=== PATIENT | female | born 1975 | race Caucasian/White ===

== ENCOUNTER 2023-11-25 06:29 | Day surgery (SDC) | payer BC ==
[2023-11-25] VITALS (9 sets, daily range): BP systolic 104–125; BP diastolic 75–85
[~2023-11-25] VITALS: Ht 157.5 cm; Wt 112.6 kg
[~2023-11-25 06:29] MED LIST: Lactated Ringer's 1,000 ML IV SCH
[2023-11-25] MEDS ORDERED: Armour Thyroid15 MG PO (06:42)
[2023-11-25] MEDS ORDERED: PROG100 PO (06:42)
[2023-11-25] MEDS ORDERED: THYROID60 MG (06:43)
--- NOTE | 2023-11-25 06:59 | NUR ---
Ambulatory in Day Surgery History, Chart, Medications and Allergies reviewed before start of procedure. Lungs clear T/O to Auscultation. Pre-Op teaching done. Pt verbalizes understanding. Patient States Post-Procedure ride home has been arranged.
[2023-11-25] MEDS ORDERED: Dexamethasone Sod Phos 10 MG/ML 1ML VIAL ONE (07:44)
[2023-11-25] MEDS ORDERED: propofoL 20 ML IV ONE (07:44)
[2023-11-25] MEDS ORDERED: Ondansetron HCl 2 MG / ML 2ML Vial ONE (07:44)
[2023-11-25] MEDS ORDERED: SuccINYLCHOLINE Chloride 100 MG/5 ML 5MLSYR ONE (07:44)
[2023-11-25] MEDS ORDERED: FentaNYL Citrate 50 MCG/ML 2 ML Injection ONE ×3 (07:46→09:13)
[2023-11-25] MEDS ORDERED: Bupivacaine 0.5% HCl 5 MG/ML 30MLVIAL ONE (08:02)
[2023-11-25] MEDS ORDERED: HYDROcodone 5-APAP 325 TAB PO PRN (09:05)
--- NOTE | 2023-11-25 10:45 | NUR ---
1015- Discharge instructions reviewed with patient. Patient verbalizes understanding. Copy given to patient to take home. DRG C/D/I TO BUTTOCK WITH SURGICAL GLUE IN PLACE. Discharged via wheelchair to private car for ride home.
== END 2023-11-25 10:15 | disposition home or self-care (01) ==
LOC: ORD 06:29 → ORSCMMR 06:29 → ORD 07:30
PROVIDERS: Surgery
PROC: 0JB90ZX Excision of Buttock Subcutaneous Tissue and Fascia, Open Approach, Diagnostic (ICD-10-PCS; principal; 2023-11-25 07:30)
DX: R22.2 Localized swelling, mass and lump, trunk (principal); M79.89 Other specified soft tissue disorders; E03.9 Hypothyroidism, unspecified; E66.01 Morbid (severe) obesity due to excess calories; Z68.42 Body mass index [BMI] 45.0-49.9, adult; Z79.899 Other long term (current) drug therapy
CPT/HCPCS: 88304; A9270; J0330; J1100; J2405; J2704; J3010; J7120

== ENCOUNTER 2024-08-21 07:20 | Emergency (ER) | payer BC ==
[~2024-08-21] VITALS: Ht 157.5 cm; Wt 87.5 kg
[~2024-08-21 07:20] MED LIST changes: +Armour Thyroid15 MG PO; -Lactated Ringer's 1,000 ML IV SCH; +PROG100 PO; +THYROID60 MG
[2024-08-21 08:28] VITALS: BP 133/83
[2024-08-21] MEDS ORDERED: Ketorolac Tromethamine 15mg Vial IV ONE (08:30)
[2024-08-21 08:55] LABS: BASOPHILS ABSOLUTE AUTO 0.04 K/mm3 (0.00-0.23); BASOPHILS PERCENT AUTO 0 % (0-2); EOSINOPHILS ABSOLUTE AUTO 0.04 K/mm3 (0.00-0.68); EOSINOPHILS PERCENT AUTO 0 % (0-6); Hematocrit 44.2 % (33.0-51.0); Hemoglobin 15.8 g/dL (11.5-16.0); IMMATURE GRAN ABSOLUTE AUTO 0.05 K/mm3 (0.00-0.10); IMMATURE GRAN PERCENT AUTO 1 % (0-1); LYMPHOCYTES ABSOLUTE AUTO 0.88 K/mm3 (0.84-5.20); LYMPHOCYTES PERCENT AUTO 9 % (21-46); MONOCYTES ABSOLUTE AUTO 0.76 K/mm3 (0.16-1.47); MONOCYTES PERCENT AUTO 8 % (4-13); Mean Corpuscular HGB 33.1 pg (26.0-34.0); Mean Corpuscular HGB Conc 35.7 g/dL (31.5-36.5); Mean Corpuscular Volume 93 fL (80-100); Mean Platelet Volume 11.9 fL (9.1-12.4); NEUTROPHILS ABSOLUTE AUTO 7.69 K/mm3 (1.96-9.15); NEUTROPHILS PERCENT AUTO 81 % (41-73); Platelet Count 176 K/mm3 (150-400); RDW Coefficient Variation 12.5 % (11.7-14.2); RDW Standard Deviation 42.8 fL (35.1-46.3); Red Blood Cell Count 4.77 M/mm3 (3.80-5.20); White Blood Cell Count 9.46 K/mm3 (4.00-11.30)
[2024-08-21 09:16] LABS: Albumin, Blood 3.8 g/dL (3.4-5.0); Albumin/Globulin Ratio 1.1 (0.8-1.8); Bilirubin, Total 1.4 mg/dL (0.1-1.0); Bun/Creatinine Ratio 8.5 (12.0-20.0); Calcium, Blood 9.4 mg/dL (8.5-10.1); Creatinine, Blood 0.94 mg/dL (0.40-1.00); Globulin, Blood 3.4 g/dL (2.2-4.0); Potassium, Blood 4.7 mmol/L (3.5-5.5); Total Protein, Blood 7.2 g/dL (6.4-8.2)
[2024-08-21 09:54] LABS: Source, Urine Clean Catch
[2024-08-21 10:13] LABS: Appearance, Urine Hazy (Clear); Bilirubin, Urine Neg (Neg); Blood, Urine 5+ (Neg); Color, Urine Yellow (P-Yellow); Glucose Qualitative, Urine Neg (Neg); Ketones, Urine 1+ (Neg); Leukocyte Esterase, Urine 3+ (Neg); Nitrite, Urine Neg (Neg); Protein, Urine 2+ (Neg); Specific Gravity, Urine 1.005 (1.003-1.022); Urobilinogen, Urine NORM (Normal); pH, Urine 6.5 (5.0-8.0)
[2024-08-21 11:05] LABS: Bacteria Mod /hpf; Mucus Light (0-Heavy); Squamous Epithelial Cells Few /hpf (Few); White Blood Cells, Urine TNTC /hpf (0-5)
[2024-08-21] MEDS ORDERED: CEFD300 PO (11:13)
[2024-08-21] MEDS ORDERED: Cefdinir 300 MG Cap PO ONE (11:15)
== END 2024-08-21 11:27 | disposition home or self-care (01) ==
LOC: ER 07:20
PROVIDERS: Physician Assistant
DX: N30.00 Acute cystitis without hematuria (principal); N28.89 Other specified disorders of kidney and ureter; Z79.899 Other long term (current) drug therapy
CPT/HCPCS: 74177; 80053; 81001; 85025; 87077; 87086; 87186; 96374-59; 99284-25; A9270; J1885; Q9967

== ENCOUNTER → 2024-12-29 | Outpatient (CLI) | payer BC ==
[~2024-12-29] MED LIST changes: +CEFD300 PO
== END | disposition home or self-care (01) ==
LOC: LAB 12:33 → LAB SHORT 12:33 → LAB FUT 12-23 07:00
DX: N39.0 Urinary tract infection, site not specified (principal); R10.2 Pelvic and perineal pain
CPT/HCPCS: 88108